=== PATIENT | male | born 1975 | race Caucasian/White ===

== ENCOUNTER 2020-07-13 16:51 | Observation (INO) | payer OTHER ==
[2020-07-13] MEDS ORDERED: Sodium Chloride 0.9% 10 ML Syringe FLUSH PRN (16:52)
--- NOTE | 2020-07-13 16:58 | EDM.PDOC ---
ED HPI GENERAL MEDICAL PROBLEM - General Chief Complaint: Cardiovascular Problem Stated Complaint: CHEST PAIN Time Seen by Provider: 07/13/20 16:53 Source of Information: Reports: Patient, EMS History Limitations: Reports: No Limitations - History of Present Illness INITIAL COMMENTS - FREE TEXT/NARRATIVE: 45 YO WM PRESENTS TO ER WITH LEFT SIDED CHEST PAIN WHICH BEGAN EARLIER TODAY. PT REPORTS HE HAS BEEN HAVING PALPITATIONS WITH LEFT HAND NUMBNESS, UNCONTROLLED HYPERTENSION AND MILD CHEST PAIN OVER THE LAST 3 WEEKS. PT REPORTS HE WAS DRIVING INTO TOWN AROUND 12PM TODAY WHEN HE DEVELOPED LEFT SIDED CHEST PAIN WITH ASSOCIATED DIZZINESS AND LEFT ARM DISCOMFORT. PT WENT TO CLINIC AT WHICH TIME HE WAS GIVEN ASA 324MG AND NITRO 0.4MG SL X 1 WHICH RELIEVED HIS PAIN. PT WITH HI STORY OF HYPERTENSION AND HAS RECENTLY HAD HIS BLOOD PRESSURE MEDICATIONS ADJUSTED BY PCP. PT REPORTS LISINOPRIL WAS INCREASED FROM 10MG TO 20MG QD. PT ALSO TAKING HCTZ 25MG DAILY. PT DENIES SHORTNESS OF BREATH, NAUSEA/VOMITING, NO FEVER/CHILLS, AND NO SYNCOPE OR RECENT ILLNESSES. 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, Nitroglycerin - Related Data Allergies Allergy/AdvReac Type Severity Reaction Status Date / Time No Known Drug Allergies Allergy Cannot Verified 07/13/20 17:03 Remember Home Meds: Home Meds Cetirizine [ZyrTEC] 10 mg PO DAILY 07/13/20 [History] Fluticasone Propionate [Flonase] 1 spray NASBOTH BID 07/13/20 [History] hydroCHLOROthiazide [Hydrochlorothiazide] 25 mg PO DAILY 07/13/20 [History] lisinopriL [Lisinopril] 20 mg PO DAILY 07/13/20 [History] ED ROS GENERAL - Review of Systems Review Of Systems: See Below Constitutional: Reports: No Symptoms HEENT: Reports: No Symptoms Respiratory: Reports: No Symptoms Cardiovascular: Reports: Chest Pain, Lightheadedness Endocrine: Reports: No Symptoms GI/Abdominal: Reports: No Symptoms : Reports: No Symptoms Musculoskeletal: Reports: No Symptoms Skin: Reports: No Symptoms Neurological: Reports: No Symptoms Psychiatric: Reports: No Symptoms Hematologic/Lymphatic: Reports: No Symptoms Immunologic: Reports: No Symptoms ED EXAM, GENERAL - Physical Exam Exam: See Below Exam Limited By: No Limitations General Appearance: Alert, WD/WN, No Apparent Distress Eye Exam: Bilateral Eye: PERRL Throat/Mouth: Normal Inspection, Normal Lips, Normal Teeth, Normal Gums, Normal Oropharynx, Normal Voice, No Airway Compromise Head: Atraumatic, Normocephalic Neck: Normal Inspection, Supple, Non-Tender, Full Range of Motion Respiratory/Chest: No Respiratory Distress, Lungs Clear, Normal Breath Sounds, No Accessory Muscle Use, Chest Non-Tender Cardiovascular: Normal Peripheral Pulses, Regular Rate, Rhythm, No Edema, No Gallop, No JVD, No Murmur, No Rub GI/Abdominal: Normal Bowel Sounds, Soft, Non-Tender, No Organomegaly, No Distention, No Abnormal Bruit, No Mass Back Exam: Normal Inspection, Full Range of Motion, NT Extremities: Normal Inspection, Normal Range of Motion, Non-Tender, Normal Capillary Refill, No Pedal Edema Neurological: Alert, Oriented, CN II-XII Intact, Normal Cognition, Normal Gait, Normal Reflexes, No Motor/Sensory Deficits Psychiatric: Normal Affect, Normal Mood Skin Exam: Warm, Dry, Intact, Normal Color, No Rash Lymphatic: No Adenopathy #1 Interpretation EKG Date: 07/13/20 Time: 16:59 Rhythm: NSR Rate (Beats/Min): 84 [place]: Normal P-Wave: Present QRS: Normal ST-T: Normal QT: Normal Comparison: NA - No Prior EKG Course - Vital Signs Last Recorded V/S: Last Vital Signs Temp 97.8 F 07/13/20 17:00 Pulse 84 07/13/20 17:00 Resp 10 L 07/13/20 17:00 BP 154/103 H 07/13/20 17:00 Pulse Ox 97 07/13/20 17:00 - Orders/Labs/Meds Orders: Active Orders 24 hr Category Date Time Status Cardiac Monitoring [RC] . DIRECTED Care 07/13/20 16:52 Active EKG Documentation Completion [RC] ASDIRECTED Care 07/13/20 16:52 Active Peripheral IV Care [RC] . DIRECTED Care 07/13/20 16:52 Active Sodium Chloride 0.9% [Saline Flush] Med 07/13/20 16:52 Active 10 ml FLUSH Q8HR PRN Peripheral IV Insertion Adult [OM.PC] Routine Oth 07/13/20 16:52 Ordered EKG 12 Lead [EK] Stat Ther 07/13/20 16:52 Ordered Medication Orders Sodium Chloride (Sodium Chloride 0.9% 10 Ml Syringe) 10 ml FLUSH Q8HR PRN PRN Reason: keep vein open Labs: Laboratory Tests 07/13/20 07/13/20 07/13/20 Range/Units 17:05 17:05 17:05 WBC 5.69 (5.00-10.00) 10^3/uL RBC 4.98 (4.50-6.00) 10^6/uL Hgb 15.2 (13.0-17.0) g/dL Hct 43.1 (40.0-52.0) % MCV 86.5 (82.0-92.0) fL MCH 30.5 (27.0-31.0) pg MCHC 35.3 (32.0-36.0) g/dL RDW 11.7 (11.5-14.5) % Plt Count 209 (150-400) 10^3/uL MPV 9.5 (7.4-10.4) fL Immature Gran % (Auto) 0.2 (0.0-5.0) % Neut % (Auto) 70.5 H (50.0-70.0) % Lymph % (Auto) 20.4 (20.0-40.0) % [place] % (Auto) 7.7 (2.0-8.0) % Eos % (Auto) 0.5 L (1.0-3.0) % Baso % (Auto) 0.7 (0.0-1.0) % Neut # (Auto) 4.01 (2.50-7.00) 10^3/uL Lymph # (Auto) 1.16 (1.00-4.00) 10^3/uL [place] # (Auto) 0.44 (0.10-0.80) 10^3/uL Eos # (Auto) 0.03 L (0.10-0.30) 10^3/uL Baso # (Auto) 0.04 (0.00-0.10) 10^3/uL Immature Gran # (Auto) 0.01 (0.00-0.50) 10^3/uL PT 9.9 (9.2-11.2) SEC INR 1.0 (0.9-1.1) APTT 21.9 L (22.8-31.4) SEC Sodium 140 (136-145) mmol/L Potassium 3.4 L (3.5-5.1) mmol/L Chloride 103 (98-107) mmol/L Carbon Dioxide 26.3 (21.0-32.0) mmol/L Anion Gap 14.1 (5-15) mmol/L BUN 17 (7-18) mg/dL Creatinine 1.33 H (0.51-1.17) mg/dL Est Cr Clr Drug Dosing 79.27 mL/min Estimated GFR (MDRD) 58 mL/min Glucose 111 (70-140) mg/dL Calcium 7.6 L (8.7-10.3) mg/dL Total Bilirubin 0.3 (0.2-1.0) mg/dL AST 20 (15-37) U/L ALT 48 (14-63) U/L Alkaline Phosphatase 54 (46-116) U/L Creatine Kinase 114 (26-276) U/L CK-MB (CK-2) 0.91 (0.00-3.60) ng/mL Troponin I High Sens 6.300 (0-76.000) pg/mL Total Protein 6.7 (6.4-8.2) g/dL Albumin 3.84 (3.40-5.00) g/dL Meds: Medications Generic Name Dose Route Start Last Admin Trade Name Freq PRN Reason Stop Dose Admin Sodium Chloride 10 ml 07/13/20 16:52 Sodium Chloride 0.9% 10 Ml Syringe FLUSH Q8HR PRN keep vein open - Radiology Interpretation Free Text/Narrative:: CXR-NAD Departure - Departure Time of Disposition: 17:50 Disposition: Refer to Observation Condition: Fair Clinical Impression: Hypertension, uncontrolled Chest pain Qualifiers: Chest pain type: unspecified Qualified Code(s): R07.9 - Chest pain, unspecified Referrals: Lisa Hinojosa, [employer] [Primary Care Provider] - Forms: ED Department Discharge Sepsis Event Note (ED) - Focused Exam Vital Signs: Vital Signs Temp Pulse Resp BP Pulse Ox 07/13/20 17:00 97.8 F 84 10 L 154/103 H 97 - My Orders Last 24 Hours: My Active Orders 07/13/20 16:52 Cardiac Monitoring [RC] . DIRECTED EKG Documentation Completion [RC] ASDIRECTED Peripheral IV Care [RC] . DIRECTED Sodium Chloride 0.9% [Saline Flush] 10 ml FLUSH Q8HR PRN Peripheral IV Insertion Adult [OM.PC] Routine EKG 12 Lead [EK] Stat - Assessment/Plan Last 24 Hours: My Active Orders 07/13/20 16:52 Cardiac Monitoring [RC] . DIRECTED EKG Documentation Completion [RC] ASDIRECTED Peripheral IV Care [RC] . DIRECTED Sodium Chloride 0.9% [Saline Flush] 10 ml FLUSH Q8HR PRN Peripheral IV Insertion Adult [OM.PC] Routine EKG 12 Lead [EK] Stat Assessment:: 1. CHEST PAIN 2. UNCONTROLLED HYPERTENSION Plan: 1. ADMIT TO MEDICINE- DR AMANDA MARIE 2. ASA/NITRO 3. SERIAL TROP I Q6 X 3 4. SUPPORTIVE CARE 5. MEDICATION MANAGEMENT FOR ELEVATED HYPERTENSION PER MEDICINE
--- NOTE | 2020-07-13 17:31 | CR ---
[id number] RAD/RAD Chest PA And Lateral EXAM: RAD Chest PA And Lateral CLINICAL DATA: CHEST PAIN COMPARISON: No previous similar exam is available. FINDINGS: The lungs are clear. The cardiomediastinal contour is prominent. The regional bones and soft tissues are unremarkable. IMPRESSION: NO ACUTE PROCESS. Ramo Crook MD 07/13/20 1592 Thank you for allowing us to participate in the care of your patient.
[2020-07-13 17:32] LABS: PTT,PARTIAL THROMBOPLSTIN TIME 21.9 SEC (22.8-31.4)
[2020-07-13 17:42] LABS: ANION GAP 14.1 mmol/L (5-15)
[2020-07-13] MEDS ORDERED: Labetalol 100 MG/20 ML MDV IVPUSH ONE (18:46)
[2020-07-13] MEDS ORDERED: Potassium Chloride 10 MEQ Tab.ER PO ONE (18:55)
[2020-07-13] MEDS ORDERED: Labetalol 100 MG/20 ML MDV IVPUSH PRN (18:56)
[2020-07-13] MEDS ORDERED: Lidocaine 2% 100 MG/5 ML Syringe IVPUSH PRN (18:57)
[2020-07-13] MEDS ORDERED: Atropine 0.1 MG/ML 10 ML Syringe IVPUSH PRN (18:57)
[2020-07-13] MEDS ORDERED: EPINEPHrine 1:10,000 1 MG/10 ML Syringe IVPUSH PRN (18:57)
[2020-07-13] MEDS ORDERED: Nitroglycerin 0.4 MG Tab.SL SL PRN (18:57)
[2020-07-13] MEDS: Fluticasone Propionate Nasal Spray 16 GM Bottle NASBOTH SCH (20:08)
[2020-07-14 07:59] LABS: ANION GAP 13.9 mmol/L (5-15)
[2020-07-14] MEDS: Fluticasone Propionate Nasal Spray 16 GM Bottle NASBOTH SCH (08:43)
[2020-07-14] MEDS ORDERED: Hydrochlorothiazide 25 MG Tab PO SCH (09:00)
[2020-07-14] MEDS ORDERED: Cetirizine 10 MG Tab PO SCH (09:00)
[2020-07-14] MEDS ORDERED: Lisinopril 20 MG Tab PO SCH (09:00)
--- NOTE | 2020-07-14 09:04 | PCM.HP.2 ---
H&P History of Present Illness - General Date of Service: 07/14/20 Admit Problem/Dx: Admission Diagnosis/Problem Admission Diagnosis/Problem Chest pain - Related Data Allergies/Adverse Reactions: Allergies Allergy/AdvReac Type Severity Reaction Status Date / Time No Known Drug Allergies Allergy Cannot Verified 07/13/20 17:03 Remember Home Medications: Home Meds Cetirizine [ZyrTEC] 10 mg PO DAILY 07/13/20 [History] Fluticasone Propionate [Flonase] 1 spray NASBOTH BID 07/13/20 [History] hydroCHLOROthiazide [Hydrochlorothiazide] 25 mg PO DAILY 07/13/20 [History] lisinopriL [Lisinopril] 20 mg PO DAILY 07/13/20 [History] Magnesium Oxide 500 mg PO DAILY #0 tablet 07/14/20 [Rx] Past Medical History HEENT History: Reports: Allergic Rhinitis, Impaired Vision, Otitis Media Cardiovascular History: Reports: Hypertension Gastrointestinal History: Reports: GERD Musculoskeletal History: Reports: Gout Neurological History: Reports: None Endocrine/Metabolic History: Reports: Obesity/BMI 30+ - Past Surgical History Head Surgeries/Procedures: Reports: None HEENT Surgical History: Reports: None Cardiovascular Surgical History: Reports: None GI Surgical History: Reports: None Endocrine Surgical History: Reports: None Neurological Surgical History: Reports: None Musculoskeletal Surgical History: Reports: Other (See Below) Other Musculoskeletal Surgeries/Procedures:: right arm surgery to remove spur that was pinching nerve Social & Family History - Family History Family Medical History: No Pertinent Family History - Tobacco Use Tobacco Use Status *Q: Former Tobacco User Used Tobacco, but Quit: Yes Month/Year Tobacco Last Used: 1995 - Caffeine Use Caffeine Use: Reports: Coffee, Soda - Alcohol Use Days Per Week of Alcohol Use: 3 Number of Drinks Per Day: 1 Total Drinks Per Week: 3 - Recreational Drug Use Recreational Drug Use: No H&P Review of Systems - Review of Systems: Review Of Systems: See Below General: Reports: No Symptoms HEENT: Reports: No Symptoms Pulmonary: Reports: No Symptoms. Denies: Shortness of Breath Cardiovascular: Reports: No Symptoms. Denies: Chest Pain, Palpitations Gastrointestinal: Reports: No Symptoms. Denies: Nausea Genitourinary: Reports: No Symptoms Musculoskeletal: Reports: No Symptoms Skin: Reports: No Symptoms Psychiatric: Reports: No Symptoms Neurological: Reports: No Symptoms Hematologic/Lymphatic: Reports: No Symptoms Immunologic: Reports: No Symptoms Exam - Exam Exam: See Below - Vital Signs Vital Signs: Last Vital Signs Temp 97.5 F 07/14/20 06:20 Pulse 60 07/14/20 06:20 Resp 20 07/14/20 06:20 BP 121/73 07/14/20 08:43 Pulse Ox 97 07/14/20 06:20 Weight: 260 lb 12.8 oz - Exam Quality Assessment: No: Supplemental Oxygen General: Alert, Oriented, Cooperative HEENT: Conjunctiva Clear Neck: Supple, Trachea Midline Lungs: Clear to Auscultation, Normal Respiratory Effort Cardiovascular: Regular Rate, Regular Rhythm GI/Abdominal Exam: Normal Bowel Sounds, Soft, Non-Tender, No Distention (Male) Exam: Deferred Rectal (Males) Exam: Deferred Back Exam: Normal Inspection, Full Range of Motion Extremities: Normal Inspection, Normal Range of Motion, Non-Tender Skin: Warm, Dry, Intact Neuro Extensive - Mental Status: Alert, Oriented x3, Normal Mood/Affect, Normal Cognition Psychiatric: Alert, Normal Affect, Normal Mood - Patient Data Lab Results Last 24 hrs: Laboratory Results - last 24 hr 07/13/20 07/13/20 07/13/20 Range/Units 17:00 17:05 17:05 WBC 5.69 (5.00-10.00) 10^3/uL RBC 4.98 (4.50-6.00) 10^6/uL Hgb 15.2 (13.0-17.0) g/dL Hct 43.1 (40.0-52.0) % MCV 86.5 (82.0-92.0) fL MCH 30.5 (27.0-31.0) pg MCHC 35.3 (32.0-36.0) g/dL RDW 11.7 (11.5-14.5) % Plt Count 209 (150-400) 10^3/uL MPV 9.5 (7.4-10.4) fL Immature Gran % (Auto) 0.2 (0.0-5.0) % Neut % (Auto) 70.5 H (50.0-70.0) % Lymph % (Auto) 20.4 (20.0-40.0) % [place] % (Auto) 7.7 (2.0-8.0) % Eos % (Auto) 0.5 L (1.0-3.0) % Baso % (Auto) 0.7 (0.0-1.0) % Neut # (Auto) 4.01 (2.50-7.00) 10^3/uL Lymph # (Auto) 1.16 (1.00-4.00) 10^3/uL [place] # (Auto) 0.44 (0.10-0.80) 10^3/uL Eos # (Auto) 0.03 L (0.10-0.30) 10^3/uL Baso # (Auto) 0.04 (0.00-0.10) 10^3/uL Immature Gran # (Auto) 0.01 (0.00-0.50) 10^3/uL PT (9.2-11.2) SEC INR (0.9-1.1) APTT (22.8-31.4) SEC Sodium 140 (136-145) mmol/L Potassium 3.4 L (3.5-5.1) mmol/L Chloride 103 (98-107) mmol/L Carbon Dioxide 26.3 (21.0-32.0) mmol/L Anion Gap 14.1 (5-15) mmol/L BUN 17 (7-18) mg/dL Creatinine 1.33 H (0.51-1.17) mg/dL Est Cr Clr Drug Dosing 79.27 mL/min Estimated GFR (MDRD) 58 mL/min Glucose 111 (70-140) mg/dL Calcium 7.6 L (8.7-10.3) mg/dL Magnesium 1.6 L (1.8-2.4) mg/dL Total Bilirubin 0.3 (0.2-1.0) mg/dL AST 20 (15-37) U/L ALT 48 (14-63) U/L Alkaline Phosphatase 54 (46-116) U/L Creatine Kinase 114 (26-276) U/L CK-MB (CK-2) 0.91 (0.00-3.60) ng/mL Troponin I High Sens 6.300 (0-76.000) pg/mL Total Protein 6.7 (6.4-8.2) g/dL Albumin 3.84 (3.40-5.00) g/dL SARS CoV-2 RNA Rapid LADARIUS (NEGATIVE) 07/13/20 07/13/20 07/13/20 Range/Units 17:05 19:02 21:00 WBC (5.00-10.00) 10^3/uL RBC (4.50-6.00) 10^6/uL Hgb (13.0-17.0) g/dL Hct (40.0-52.0) % MCV (82.0-92.0) fL MCH (27.0-31.0) pg MCHC (32.0-36.0) g/dL RDW (11.5-14.5) % Plt Count (150-400) 10^3/uL MPV (7.4-10.4) fL Immature Gran % (Auto) (0.0-5.0) % Neut % (Auto) (50.0-70.0) % Lymph % (Auto) (20.0-40.0) % [place] % (Auto) (2.0-8.0) % Eos % (Auto) (1.0-3.0) % Baso % (Auto) (0.0-1.0) % Neut # (Auto) (2.50-7.00) 10^3/uL Lymph # (Auto) (1.00-4.00) 10^3/uL [place] # (Auto) (0.10-0.80) 10^3/uL Eos # (Auto) (0.10-0.30) 10^3/uL Baso # (Auto) (0.00-0.10) 10^3/uL Immature Gran # (Auto) (0.00-0.50) 10^3/uL PT 9.9 (9.2-11.2) SEC INR 1.0 (0.9-1.1) APTT 21.9 L (22.8-31.4) SEC Sodium (136-145) mmol/L Potassium (3.5-5.1) mmol/L Chloride (98-107) mmol/L Carbon Dioxide (21.0-32.0) mmol/L Anion Gap (5-15) mmol/L BUN (7-18) mg/dL Creatinine (0.51-1.17) mg/dL Est Cr Clr Drug Dosing mL/min Estimated GFR (MDRD) mL/min Glucose (70-140) mg/dL Calcium (8.7-10.3) mg/dL Magnesium (1.8-2.4) mg/dL Total Bilirubin (0.2-1.0) mg/dL AST (15-37) U/L ALT (14-63) U/L Alkaline Phosphatase (46-116) U/L Creatine Kinase (26-276) U/L CK-MB (CK-2) (0.00-3.60) ng/mL Troponin I High Sens 8.500 (0-76.000) pg/mL Total Protein (6.4-8.2) g/dL Albumin (3.40-5.00) g/dL SARS CoV-2 RNA Rapid LADARIUS Negative (NEGATIVE) 07/14/20 Range/Units 07:25 WBC (5.00-10.00) 10^3/uL RBC (4.50-6.00) 10^6/uL Hgb (13.0-17.0) g/dL Hct (40.0-52.0) % MCV (82.0-92.0) fL MCH (27.0-31.0) pg MCHC (32.0-36.0) g/dL RDW (11.5-14.5) % Plt Count (150-400) 10^3/uL MPV (7.4-10.4) fL Immature Gran % (Auto) (0.0-5.0) % Neut % (Auto) (50.0-70.0) % Lymph % (Auto) (20.0-40.0) % [place] % (Auto) (2.0-8.0) % Eos % (Auto) (1.0-3.0) % Baso % (Auto) (0.0-1.0) % Neut # (Auto) (2.50-7.00) 10^3/uL Lymph # (Auto) (1.00-4.00) 10^3/uL [place] # (Auto) (0.10-0.80) 10^3/uL Eos # (Auto) (0.10-0.30) 10^3/uL Baso # (Auto) (0.00-0.10) 10^3/uL Immature Gran # (Auto) (0.00-0.50) 10^3/uL PT (9.2-11.2) SEC INR (0.9-1.1) APTT (22.8-31.4) SEC Sodium 141 (136-145) mmol/L Potassium 3.8 (3.5-5.1) mmol/L Chloride 104 (98-107) mmol/L Carbon Dioxide 26.9 (21.0-32.0) mmol/L Anion Gap 13.9 (5-15) mmol/L BUN 16 (7-18) mg/dL Creatinine 1.33 H (0.51-1.17) mg/dL Est Cr Clr Drug Dosing 79.27 mL/min Estimated GFR (MDRD) 58 mL/min Glucose 105 (70-140) mg/dL Calcium 8.4 L (8.7-10.3) mg/dL Magnesium (1.8-2.4) mg/dL Total Bilirubin (0.2-1.0) mg/dL AST (15-37) U/L ALT (14-63) U/L Alkaline Phosphatase (46-116) U/L Creatine Kinase (26-276) U/L CK-MB (CK-2) (0.00-3.60) ng/mL Troponin I High Sens 8.700 (0-76.000) pg/mL Total Protein (6.4-8.2) g/dL Albumin (3.40-5.00) g/dL SARS CoV-2 RNA Rapid LADARIUS (NEGATIVE) Result Diagrams: 07/13/20 17:05 07/14/20 07:25 Sepsis Event Note - Evaluation Sepsis Screening Result: No Definite Risk - Focused Exam Vital Signs: Vital Signs Temp Pulse Resp BP BP BP Pulse Ox 07/14/20 08:43 121/73 07/14/20 06:20 97.5 F 60 20 118/85 97 07/14/20 02:54 97.2 F 60 20 97/63 96 07/13/20 22:35 98 F 58 L 20 113/71 94 L 07/13/20 21:52 63 142/96 H 07/13/20 21:20 66 152/98 H 07/13/20 21:08 66 146/99 H Problem List Initiated/Reviewed/Updated: Yes Orders Last 24hrs: Active Orders 24 hr Category Date Time Status Patient Status [ADT] Routine ADT 07/13/20 18:04 Active Cardiac Monitoring [RC] 03,07,11,15,19,23 Care 07/13/20 18:05 Active Communication Order [RC] , Care 07/13/20 21:05 Active Oxygen Therapy [RC] .PRN Care 07/13/20 18:04 Active Up ad Bela [RC] ASDIRECTED Care 07/13/20 18:04 Active Vital Signs [RC] 03,07,11,15,19,23 Care 07/13/20 18:04 Active Atropine [Atropine 0.1 MG/ML] Med 07/13/20 18:57 Active See Dose Instructions IVPUSH ASDIRECTED PRN Cetirizine [ZyrTEC] Med 07/14/20 09:00 Active 10 mg PO DAILY EPINEPHrine [EPINEPHrine 1:10,000] Med 07/13/20 18:57 Active 1 mg IVPUSH ASDIRECTED PRN Fluticasone Propionate [Flonase] Med 07/13/20 21:00 Active 0 gm NASBOTH BID Labetalol [Normodyne] Med 07/13/20 18:56 Active 5 mg IVPUSH Q1H PRN Lidocaine 2% [Xylocaine 2%] Med 07/13/20 18:57 Active See Dose Instructions IVPUSH ASDIRECTED PRN Nitroglycerin [Nitrostat] Med 07/13/20 18:57 Active 0.4 mg SL ASDIRECTED PRN hydroCHLOROthiazide Med 07/14/20 09:00 Active 25 mg PO DAILY lisinopriL [Prinivil] Med 07/14/20 09:00 Active 20 mg PO DAILY Peripheral IV Insertion Adult [OM.PC] Routine Oth 07/13/20 16:52 Ordered Resuscitation Status Routine Resus Stat 07/13/20 18:04 Ordered EKG 12 Lead [EK] Stat Ther 07/13/20 16:52 Stop Req EKG 12 Lead [EK] Stat Ther 07/13/20 19:05 Ordered Medication Orders Atropine Sulfate (Atropine 0.1 Mg/Ml 10 Ml Syringe) 0 mg IVPUSH ASDIRECTED PRN PRN Reason: Heart. Cetirizine HCl (Cetirizine 10 Mg Tab) 10 mg PO DAILY ANTONIO Last Admin: 07/14/20 08:43 Dose: 10 mg Documented by: SOLITARIO Epinephrine HCl (Epinephrine 1:10,000 1 Mg/10 Ml Syringe) 1 mg IVPUSH ASDIRECTED PRN PRN Reason: Heart. Fluticasone Propionate (Fluticasone Propionate Nasal [place] 16 Gm Bottle) 0 gm NASBOTH BID [facility] Last Admin: 07/14/20 08:43 Dose: 1 spray Documented by: Admin: 07/13/20 20:08 Dose: 2 inhalation Documented by: ANTHONY Hydrochlorothiazide (Hydrochlorothiazide 25 Mg Tab) 25 mg PO DAILY [facility] Last Admin: 07/14/20 08:43 Dose: 25 mg Documented by: SOLITARIO Labetalol HCl (Labetalol 100 Mg/20 Ml Mdv) 5 mg IVPUSH Q1H PRN; Protocol PRN Reason: SBP >160 OR DBP >100 Last Admin: 07/13/20 21:25 Dose: 5 mg Documented by: ANTHONY Lidocaine HCl (Lidocaine 2% 100 Mg/5 Ml Syringe) 0 mg IVPUSH ASDIRECTED PRN PRN Reason: Heart. Lisinopril (Lisinopril 20 Mg Tab) 20 mg PO DAILY [facility] Last Admin: 07/14/20 08:43 Dose: 20 mg Documented by: SOLITARIO Nitroglycerin (Nitroglycerin 0.4 Mg Tab.Sl) 0.4 mg SL ASDIRECTED PRN PRN Reason: Heart. Assessment/Plan Comment:: HPI summary: Arsen is a 45y M patient who presented initially to the [facility] around 1600 on Monday07/13/20 for complaints of left sided chest pain with radiation down the left arm and reported numbness, he had stated that he thought it might be related to his blood pressure and wanted this checked in the clinic. Initial BP in clinic 174/120 at 1601, recheck at 1607 154/114. Patient reports he had been experiencing occasional dizziness. Denied SOB, diaphoresis and nausea. ASA 324mg given in clinic with EKG obtained - NSR with non-specific ST abnormality, slight ST depression appreciated. EMS was called to transport patient to [facility] for further evaluation and treatment as indicated for left sided chest pain and uncontrolled HTN. Patient was seen in clinic by his PCP, Lisa Hinojosa APRN, CNP on 07/02/20 with BP 140/102. Lisinopril was increased from 10mg PO daily to 20mg PO daily and maintain prior dose of HCTZ at 25mg PO daily. ED course: Patient arrived by EMS to ER with 0.4mg SL nitro given en route from [place] with reported decrease in chest pain. Blood pressure elevated upon arrival at 154/103. Labetalol 5mg given in ER. CXR with no acute process. WBC 5.69, Hgb 15.2, platelets 209. Na 141, K 3.4, BUN 16, Creatinine 1.33. Initial troponin negative. Patient admitted for observation chest pain with serial troponins, hypertension management. Hospital course: 07/14/20: Vitals stable this morning T 97.5, HR 60, RR 20, 97% on room air, blood pressure normalized 121/73. Patient denies chest pain since last dose of labetalol was given around 0 (BP 152/98), chest pain resolved with normalization of blood pressure. Denies diaphoresis, nausea, SOB. No complaints this morning besides discomfort from the IV in the left antecubital area when he bends his arm. K normalized this morning to 3.8 following KCl 20 mEq x 1 dose. Mg 1.6, oral supplementation of mag oxide 500mg started. Patient and concerned about patient experiencing increased blood pressure with associated chest pain after discharge. Hospitalization problems and plan: # Chest pain; resolved. - serial troponins negative x 3 # Uncontrolled HTN - Labetalol 5mg IV PRN SBP>160 or DBP>110 with 1 dose given around 2130 last evening for reported chest pain and increased BP. - Continue home lisinopril 20mg PO daily, HCTZ 25mg PO daily. # hypokalemia - KCl supplementation of 20mEq x 1 dose given; repeat this am 3.8 # hypomagnesemia - Mg 1.6 this am; will start mag oxide of 500mg PO daily Chronic, stable conditions: # Obesity; BMI 36 Hospitalization details: # FEN: No IVF, KCl 20 mEq x1 dose, Mag oxide 500mg PO started today; heart healthy diet # PPX: None, ambulatory. No indication for GI PPX. # Code status: FULL CODE # Emergency contact: Zaria () [phone] # Disposition: Patient admitted on observation status for chest pain, hypertension. Anticipate likely discharge later today based on clinical course. - Mortality Measure Prognosis:: Good
[2020-07-14] MEDS ORDERED: Magnesium Oxide 500 MG Tab PO SCH (09:45)
--- NOTE | 2020-07-14 11:15 | PCM.DCSUM1 ---
Discharge Summary - Hospital Course Free Text/Narrative:: Date of admission: 07/13/20 Date of discharge: 07/14/20 Admission diagnoses: # Chest pain, resolved. # Uncontrolled hypertension, normalized. # Hypokalemia, resolved. # Hypomagensemia, oral supplementation initiated. Discharge diagnoses: # Hypertension - Continue lisinopril 20mg PO daily and HCTZ 25mg PO daily # Hypomagesemia - Continue magnesium oxide 500mg PO daily # Obesity (BMI 36) Hospital course: HPI summary: Arsen is a 45y M patient who presented initially to the [facility] around 1600 on Monday07/13/20 for complaints of left sided chest pain with radiation down the left arm and reported numbness, he had stated that he thought it might be related to his blood pressure and wanted this checked in the clinic. Initial BP in clinic 174/120 at 1601, recheck at 1607 154/114. Patient reports he had been experiencing occasional dizziness. Denied SOB, diaphoresis and nausea. ASA 324mg given in clinic with EKG obtained - NSR with non-specific ST abnormality, slight ST depression appreciated. EMS was called to transport patient to [facility] ER for further evaluation and treatment as indicated for left sided chest pain and uncontrolled HTN. Patient was seen in clinic by his PCP, Lisa Hinojosa APRN, CNP on 07/02/20 with BP 140/102. Lisinopril was increased from 10mg PO daily to 20mg PO daily and maintain prior dose of HCTZ at 25mg PO daily. ED course: Patient arrived by EMS to ER with 0.4mg SL nitro given en route from [place] with reported decrease in chest pain. Blood pressure elevated upon arrival at 154/103. Labetalol 5mg given in ER. CXR with no acute process. WBC 5.69, Hgb 15.2, platelets 209. Na 141, K 3.4, BUN 16, Creatinine 1.33. Initial troponin negative. Patient admitted for observation chest pain with serial troponins, hypertension management. Hospital course: 07/14/20: Vitals stable this morning T 97.5, HR 60, RR 20, 97% on room air, blood pressure normalized 121/73. Patient denies chest pain since last dose of labetalol was given around 2130 (BP 152/98), chest pain resolved with normalization of blood pressure. Denies diaphoresis, nausea, SOB. No complaints this morning besides discomfort from the IV in the left antecubital area when he bends his arm. K normalized this morning to 3.8 following KCl 20 mEq x 1 dose. Mg 1.6, oral supplementation of mag oxide 500mg started. Patient and concerned about patient experiencing increased blood pressure with associated chest pain after discharge. Blood pressure 97/63 recorded overnight. Discussed concerns regarding altering hypertension regimen too rapidly and desire to normalize blood pressure gradually to improve tolerance and decrease risk of adverse side effects. Advised patient and to check blood pressure daily, additionally anxiety can increase blood pressure so not to become overly focused on blood pressure readings so that they may inadvertently increase this further. No concerning EKG changes identified and troponin normal x3 which is reassuring. Discharge and follow-up recommendations: - Discharge to home per self care - New medications at discharge: Magnesium oxide 500mg PO daily (Rx sent to [facility]) - Follow-up with Lisa Hinojosa APRN, CNP on July 17 at 9:30am. - Discharge Data Discharge Date: 07/14/20 Discharge Disposition: Home, Self-Care 01 Condition: Good - Referral to Home Health Primary Care Physician: Lisa Hinojosa NP - Patient Instructions Diet: Heart Healthy Diet Showering/Bathing: June Shower - Discharge Plan *PRESCRIPTION DRUG MONITORING PROGRAM REVIEWED*: Not Applicable *COPY OF PRESCRIPTION DRUG MONITORING REPORT IN PATIENT TATYANA: Not Applicable Home Medications: Home Meds Cetirizine [ZyrTEC] 10 mg PO DAILY 07/13/20 [History] Fluticasone Propionate [Flonase] 1 spray NASBOTH BID 07/13/20 [History] hydroCHLOROthiazide [Hydrochlorothiazide] 25 mg PO DAILY 07/13/20 [History] lisinopriL [Lisinopril] 20 mg PO DAILY 07/13/20 [History] Magnesium Oxide 500 mg PO DAILY #0 tablet 07/14/20 [Rx] Oxygen Therapy Mode: Room Air Referrals: Lisa Hinojosa NP [Primary Care Provider] - 07/17/20 9:30 am (Follow-up with Lisa on Monday in [place] ) - Discharge Summary/Plan Comment DC Time >30 min.: Yes - General Info Date of Service: 07/14/20 Functional Status: Reports: Pain Controlled, Tolerating Diet, Ambulating. Denies: New Symptoms - Review of Systems General: Reports: No Symptoms HEENT: Reports: No Symptoms Pulmonary: Reports: No Symptoms. Denies: Shortness of Breath Cardiovascular: Reports: No Symptoms. Denies: Chest Pain, Palpitations Gastrointestinal: Reports: No Symptoms. Denies: Nausea Genitourinary: Reports: No Symptoms Musculoskeletal: Reports: No Symptoms Skin: Reports: No Symptoms Neurological: Reports: No Symptoms. Denies: Dizziness Psychiatric: Reports: No Symptoms - Patient Data Vitals - Most Recent: Last Vital Signs Temp 97.5 F 07/14/20 06:20 Pulse 60 07/14/20 06:20 Resp 20 07/14/20 06:20 BP 121/73 07/14/20 08:43 Pulse Ox 97 07/14/20 06:20 Weight - Most Recent: 260 lb 12.8 oz I&O - Last 24 hours: Intake & Output 07/13/20 07/14/20 07/14/20 22:59 06:59 14:59 Intake Total 500 50 Balance 500 50 Lab Results - Last 24 hrs: Laboratory Results - last 24 hr 07/13/20 07/13/20 07/13/20 Range/Units 17:00 17:05 17:05 WBC 5.69 (5.00-10.00) 10^3/uL RBC 4.98 (4.50-6.00) 10^6/uL Hgb 15.2 (13.0-17.0) g/dL Hct 43.1 (40.0-52.0) % MCV 86.5 (82.0-92.0) fL MCH 30.5 (27.0-31.0) pg MCHC 35.3 (32.0-36.0) g/dL RDW 11.7 (11.5-14.5) % Plt Count 209 (150-400) 10^3/uL MPV 9.5 (7.4-10.4) fL Immature Gran % (Auto) 0.2 (0.0-5.0) % Neut % (Auto) 70.5 H (50.0-70.0) % Lymph % (Auto) 20.4 (20.0-40.0) % [place] % (Auto) 7.7 (2.0-8.0) % Eos % (Auto) 0.5 L (1.0-3.0) % Baso % (Auto) 0.7 (0.0-1.0) % Neut # (Auto) 4.01 (2.50-7.00) 10^3/uL Lymph # (Auto) 1.16 (1.00-4.00) 10^3/uL [place] # (Auto) 0.44 (0.10-0.80) 10^3/uL Eos # (Auto) 0.03 L (0.10-0.30) 10^3/uL Baso # (Auto) 0.04 (0.00-0.10) 10^3/uL Immature Gran # (Auto) 0.01 (0.00-0.50) 10^3/uL PT (9.2-11.2) SEC INR (0.9-1.1) APTT (22.8-31.4) SEC Sodium 140 (136-145) mmol/L Potassium 3.4 L (3.5-5.1) mmol/L Chloride 103 (98-107) mmol/L Carbon Dioxide 26.3 (21.0-32.0) mmol/L Anion Gap 14.1 (5-15) mmol/L BUN 17 (7-18) mg/dL Creatinine 1.33 H (0.51-1.17) mg/dL Est Cr Clr Drug Dosing 79.27 mL/min Estimated GFR (MDRD) 58 mL/min Glucose 111 (70-140) mg/dL Calcium 7.6 L (8.7-10.3) mg/dL Magnesium 1.6 L (1.8-2.4) mg/dL Total Bilirubin 0.3 (0.2-1.0) mg/dL AST 20 (15-37) U/L ALT 48 (14-63) U/L Alkaline Phosphatase 54 (46-116) U/L Creatine Kinase 114 (26-276) U/L CK-MB (CK-2) 0.91 (0.00-3.60) ng/mL Troponin I High Sens 6.300 (0-76.000) pg/mL Total Protein 6.7 (6.4-8.2) g/dL Albumin 3.84 (3.40-5.00) g/dL SARS CoV-2 RNA Rapid LADARIUS (NEGATIVE) 07/13/20 07/13/20 07/13/20 Range/Units 17:05 19:02 21:00 WBC (5.00-10.00) 10^3/uL RBC (4.50-6.00) 10^6/uL Hgb (13.0-17.0) g/dL Hct (40.0-52.0) % MCV (82.0-92.0) fL MCH (27.0-31.0) pg MCHC (32.0-36.0) g/dL RDW (11.5-14.5) % Plt Count (150-400) 10^3/uL MPV (7.4-10.4) fL Immature Gran % (Auto) (0.0-5.0) % Neut % (Auto) (50.0-70.0) % Lymph % (Auto) (20.0-40.0) % Sierra % (Auto) (2.0-8.0) % Eos % (Auto) (1.0-3.0) % Baso % (Auto) (0.0-1.0) % Neut # (Auto) (2.50-7.00) 10^3/uL Lymph # (Auto) (1.00-4.00) 10^3/uL Sierra # (Auto) (0.10-0.80) 10^3/uL Eos # (Auto) (0.10-0.30) 10^3/uL Baso # (Auto) (0.00-0.10) 10^3/uL Immature Gran # (Auto) (0.00-0.50) 10^3/uL PT 9.9 (9.2-11.2) SEC INR 1.0 (0.9-1.1) APTT 21.9 L (22.8-31.4) SEC Sodium (136-145) mmol/L Potassium (3.5-5.1) mmol/L Chloride (98-107) mmol/L Carbon Dioxide (21.0-32.0) mmol/L Anion Gap (5-15) mmol/L BUN (7-18) mg/dL Creatinine (0.51-1.17) mg/dL Est Cr Clr Drug Dosing mL/min Estimated GFR (MDRD) mL/min Glucose (70-140) mg/dL Calcium (8.7-10.3) mg/dL Magnesium (1.8-2.4) mg/dL Total Bilirubin (0.2-1.0) mg/dL AST (15-37) U/L ALT (14-63) U/L Alkaline Phosphatase (46-116) U/L Creatine Kinase (26-276) U/L CK-MB (CK-2) (0.00-3.60) ng/mL Troponin I High Sens 8.500 (0-76.000) pg/mL Total Protein (6.4-8.2) g/dL Albumin (3.40-5.00) g/dL SARS CoV-2 RNA Rapid LADARIUS Negative (NEGATIVE) 07/14/20 Range/Units 07:25 WBC (5.00-10.00) 10^3/uL RBC (4.50-6.00) 10^6/uL Hgb (13.0-17.0) g/dL Hct (40.0-52.0) % MCV (82.0-92.0) fL MCH (27.0-31.0) pg MCHC (32.0-36.0) g/dL RDW (11.5-14.5) % Plt Count (150-400) 10^3/uL MPV (7.4-10.4) fL Immature Gran % (Auto) (0.0-5.0) % Neut % (Auto) (50.0-70.0) % Lymph % (Auto) (20.0-40.0) % Sierra % (Auto) (2.0-8.0) % Eos % (Auto) (1.0-3.0) % Baso % (Auto) (0.0-1.0) % Neut # (Auto) (2.50-7.00) 10^3/uL Lymph # (Auto) (1.00-4.00) 10^3/uL Sierra # (Auto) (0.10-0.80) 10^3/uL Eos # (Auto) (0.10-0.30) 10^3/uL Baso # (Auto) (0.00-0.10) 10^3/uL Immature Gran # (Auto) (0.00-0.50) 10^3/uL PT (9.2-11.2) SEC INR (0.9-1.1) APTT (22.8-31.4) SEC Sodium 141 (136-145) mmol/L Potassium 3.8 (3.5-5.1) mmol/L Chloride 104 (98-107) mmol/L Carbon Dioxide 26.9 (21.0-32.0) mmol/L Anion Gap 13.9 (5-15) mmol/L BUN 16 (7-18) mg/dL Creatinine 1.33 H (0.51-1.17) mg/dL Est Cr Clr Drug Dosing 79.27 mL/min Estimated GFR (MDRD) 58 mL/min Glucose 105 (70-140) mg/dL Calcium 8.4 L (8.7-10.3) mg/dL Magnesium (1.8-2.4) mg/dL Total Bilirubin (0.2-1.0) mg/dL AST (15-37) U/L ALT (14-63) U/L Alkaline Phosphatase (46-116) U/L Creatine Kinase (26-276) U/L CK-MB (CK-2) (0.00-3.60) ng/mL Troponin I High Sens 8.700 (0-76.000) pg/mL Total Protein (6.4-8.2) g/dL Albumin (3.40-5.00) g/dL SARS CoV-2 RNA Rapid LADARIUS (NEGATIVE) Med Orders - Current: Current Medications Atropine Sulfate (Atropine 0.1 Mg/Ml 10 Ml Syringe) 0 mg IVPUSH ASDIRECTED PRN PRN Reason: Heart. Cetirizine HCl (Cetirizine 10 Mg Tab) 10 mg PO DAILY [facility] Last Admin: 07/14/20 08:43 Dose: 10 mg Documented by: Epinephrine HCl (Epinephrine 1:10,000 1 Mg/10 Ml Syringe) 1 mg IVPUSH ASDIRECTED PRN PRN Reason: Heart. Fluticasone Propionate (Fluticasone Propionate Nasal [place] 16 Gm Bottle) 0 gm NASBOTH BID [facility] Last Admin: 07/14/20 08:43 Dose: 1 spray Documented by: Hydrochlorothiazide (Hydrochlorothiazide 25 Mg Tab) 25 mg PO DAILY [facility] Last Admin: 07/14/20 08:43 Dose: 25 mg Documented by: Labetalol HCl (Labetalol 100 Mg/20 Ml Mdv) 5 mg IVPUSH Q1H PRN; Protocol PRN Reason: SBP >160 OR DBP >100 Last Admin: 07/13/20 21:25 Dose: 5 mg Documented by: Lidocaine HCl (Lidocaine 2% 100 Mg/5 Ml Syringe) 0 mg IVPUSH ASDIRECTED PRN PRN Reason: Heart. Lisinopril (Lisinopril 20 Mg Tab) 20 mg PO DAILY [facility] Last Admin: 07/14/20 08:43 Dose: 20 mg Documented by: Magnesium Oxide (Magnesium Oxide 500 Mg Tab) 500 mg PO DAILY [facility] Last Admin: 07/14/20 09:58 Dose: 500 mg Documented by: Nitroglycerin (Nitroglycerin 0.4 Mg Tab.Sl) 0.4 mg SL ASDIRECTED PRN PRN Reason: Heart. Discontinued Medications Labetalol HCl (Labetalol 100 Mg/20 Ml Mdv) 5 mg IVPUSH ONETIME ONE Stop: 07/13/20 18:47 Last Admin: 07/13/20 18:58 Dose: 5 mg Documented by: Potassium Chloride (Potassium Chloride 10 Meq Tab.Er) 20 meq PO ONETIME ONE Stop: 07/13/20 18:56 Last Admin: 07/13/20 20:08 Dose: 20 meq Documented by: Sodium Chloride (Sodium Chloride 0.9% 10 Ml Syringe) 10 ml FLUSH Q8HR PRN PRN Reason: keep vein open Last Admin: 07/13/20 21:30 Dose: 10 ml Documented by: - Exam General: Reports: Alert, Oriented, Cooperative, No Acute Distress HEENT: Reports: Pupils Equal, Mucous Membr. Moist/[place] Neck: Reports: Supple Lungs: Reports: Clear to Auscultation, Normal Respiratory Effort Cardiovascular: Reports: Regular Rate, Regular Rhythm GI/Abdominal Exam: Normal Bowel Sounds, Soft, Non-Tender, No Distention (Male) Exam: Deferred Rectal (Males) Exam: Deferred Back Exam: Reports: Normal Inspection, Full Range of Motion Extremities: Normal Inspection, Normal Range of Motion, Non-Tender Skin: Reports: Warm, Dry, Intact Neurological: Reports: No New Focal Deficit Psy/Mental Status: Reports: Alert, Normal Affect, Normal Mood
== END 2020-07-14 13:53 | disposition home or self-care (01) ==
LOC: KA.ED 16:51 → KA.MS 18:04
PROVIDERS: ADMIT Physician Assistant Medical; ATTEND Family Medicine
DX: R07.9 Chest pain, unspecified (principal); I10 Essential (primary) hypertension; E66.9 Obesity, unspecified; K21.9 Gastro-esophageal reflux disease without esophagitis; E87.6 Hypokalemia; E83.42 Hypomagnesemia; Z79.899 Other long term (current) drug therapy; Z87.891 Personal history of nicotine dependence; Z68.36 Body mass index [BMI] 36.0-36.9, adult; Z20.822 Contact with and (suspected) exposure to COVID-19
CPT/HCPCS: 36415; 71046; 80048; 80053; 82550; 82553; 83735; 84484; 85025; 85610; 85730; 93005; 96374; 96376; 99285-25; A9270-GY; G0378; J3490; U0002